=== PATIENT | male | born 1980 | race Hispanic/Latino ===

== ENCOUNTER 2020-05-21 19:56 | Emergency (ER) | payer SELFPAY ==
[~2020-05-21] VITALS: Ht 167.6 cm; Wt 70.3 kg
[2020-05-21 20:13] VITALS: BP 131/90
== END 2020-05-21 20:20 | disposition home or self-care (01) ==
LOC: ER 20:19
DX: R59.1 Generalized enlarged lymph nodes (principal); F17.210 Nicotine dependence, cigarettes, uncomplicated
CPT/HCPCS: 99282